=== PATIENT | male | born 1980 | race Two or more races ===

== ENCOUNTER 2020-01-24 09:00 | Outpatient (CLI) | payer OTHER | END 2020-01-24 09:15 | disposition home or self-care (01) | LOC: LAB 09:00 | PROVIDERS: ATTEND Internal Medicine | DX: Z01.810 Encounter for preprocedural cardiovascular examination (principal); Z01.812 Encounter for preprocedural laboratory examination; Z01.811 Encounter for preprocedural respiratory examination ==